=== PATIENT | female | born 1980 | race Two or more races ===

== ENCOUNTER 2024-08-27 03:08 | Inpatient (IN) | payer MEDICAID, SELFPAY ==
[2024-08-27] VITALS (8 sets, daily range): BP systolic 113–150; BP diastolic 66–99; PULSE 57–70; RESP 14–20; TEMP 36.3–37; O2SAT 95–99; BMI 40.3
--- NOTE | 2024-08-27 03:23 | XR_ITS ---
Examination: Abdomen sonogram, Limited Date and time of exam: August 27, 2024, 0434 hours INDICATIONS: Right upper abdominal pain beginning 3 hours ago Technique: Real-time cart[place]a scale transabdominal sonographic images of the upper abdomen obtained. Findings: Normal gallbladder. Normal common bile duct 0.35 cm Pancreas obscured by bowel gas Liver 13.5 cm no liver lesions Normal hepatopedal portal venous flow Patent IVC Impression : Normal gallbladder Normal common bile duct
--- NOTE | 2024-08-27 03:23 | XR_ITS ---
Examination: CT abdomen and pelvis without contrast. Coronal 3-D reconstructions. Sagittal 2-D reconstructions. Date and time of exam:[place] August 27, 2024, 0428 hours INDICATIONS: Onset abdominal pain today, history kidney stones COMPARISON: October 17, 2018 CTDI: vol (mGy): 21. DLP: (mGycm): 1196. Technique: Axial images of the abdomen have been obtained, 3 mm slice thickness Intravenous contrast material has not been administered. Low dose protocols were performed. One or more of the following dose reduction techniques were used; automated exposure control, adjustment of the mA and/or KV according to patient size, use of iterative reconstruction technique. Findings: Large retrocardiac gastric hernia No focal liver or splenic lesions Contracted gallbladder No pancreatic mass No renal or ureteral calculi, no hydronephrosis Fluid distended small bowel loops No pericecal inflammatory change No diverticulitis Retroverted uterus Mild free fluid in the pelvis Urinary bladder intact Moderate osteopenia IMPRESSION: Suspicious for early small bowel obstruction No renal or ureteral calculi, no hydronephrosis
--- NOTE | 2024-08-27 03:24 | PD.EDADULT ---
ED General RME/HPI General Chief complaint: Abdominal Pain Stated complaint: RUQ PAIN Time Seen by Provider: 08/27/24 03:27 Arrival date/time: 08/27/24 03:08 RME / HPI RME / HPI narrative: See MDM Related Data Home Medications ?Medication ?Instructions ?Recorded ?Confirmed No Known Home Medications 08/27/24 08/27/24 Allergies Allergy/AdvReac Type Severity Reaction Status Date / Time No Known Allergies Allergy Verified 12/25/22 20:26 Review of Systems Review of Systems Systems Reviewed: All systems reviewed, normal except as documented ED Exam Narrative Physical exam: GENERAL: NAD, AAOx3 HEENT: Moist mucosa. Eyes open, symmetrical, & clear CARDIO: Heart RRR, no obvious murmurs PULM: No noted coughing/dyspnea CTA B/L, no R/W/R GI: Abdomen soft, mild distention, tenderness to palpation in epigastric region. Appreciated bowel sounds SKIN/MSK/EXT: No wounds/rashes/edema/amputations, no pain on palpation. Pedal pulses present B/L NEURO: AAOx3, no focal neuro deficits, able to move all 4 extremities Course Course Course Narrative: see [facility] Quality Measures none Orders Category Date Time Status COVID-19 Screening Questionnaire NOW Care 08/27/24 06:56 Active Decision to Admit X1 Care 08/27/24 06:56 Completed Insert IV NOW Care 08/27/24 03:23 Active Insert NG / OG tube NOW Care 08/27/24 05:20 Active Miscellaneous Nursing Order NOW Care 08/27/24 05:46 Active Consult to General Surgery Stat Cons 08/27/24 05:[address] abdomen pelvis wo con Stat Exams 08/27/24 03:23 Completed CXR [XR chest 1V post procedure] Stat Exams 08/27/24 05:53 Completed US liver Stat Exams 08/27/24 03:23 Completed Amylase Stat Lab 08/27/24 03:35 Completed CBC Stat Lab 08/27/24 03:35 Completed CMP [Comprehensive Metabolic Panel] Stat Lab 08/27/24 03:35 Completed HCG Qualitative,Urine Stat Lab 08/27/24 21:58 Ordered HCG,Qualitative Serum Stat Lab 08/27/24 03:35 Completed Lactic Acid [Lactate (Lactic Acid)] Stat Lab 08/27/24 03:35 Completed Lipase Stat Lab 08/27/24 03:35 Completed Mag [Magnesium] Stat Lab 08/27/24 03:35 Completed UA, C/S IF [Urinalysis, C/S if Indicated] Stat Lab 08/27/24 21:58 Ordered Morphine Inj Med 08/27/24 03:24 Discontinued 2 mg IVP X1 ONE Morphine Inj Med 08/27/24 07:01 Discontinued 4 mg IVP X1 ONE Ondansetron Inj [Zofran Inj] Med 08/27/24 03:32 Active 4 mg IVP Q4HR PRN Ringers Lactated 1000 ml [Lactated Ringers] 1,000 ml Med 08/27/24 03:32 Discontinued IV 999 mls/hr Vital Signs Vital signs: Vital Signs Temperature 98.2 F 08/27/24 03:13 Pulse Rate 60 08/27/24 03:13 Respiratory Rate 17 08/27/24 03:13 Blood Pressure 138/86 H 08/27/24 03:13 Pulse Oximetry (%) 98 08/27/24 03:13 Oxygen Delivery Method Room Air 08/27/24 03:13 Discharge Plan Plan Patient Disposition: Admit Acute Care w/in Hospital Problem List Clinical Impression: Small bowel obstruction, Abdominal pain, Calculus of kidney MDM Narrative MDM hospital course: 44-year-old female past medical history of gastric sleeve surgery, C-sections who presented to the ED due to epigastric pain. Patient states the pain is 10 out of 10 nonradiating onset around midnight today 08/27/2024. She describes the pain as pressure-like sensation in the abdomen stated she needed to crawl applicable to make it tolerable. Before about getting out of the car to come to the ED she had to wait for 10 to 15-minute for the pain to go away. She states she previously had gallstones in the past however they told her she was likely to pass. She denies fever, chills, nausea, vomiting, diarrhea. Last bowel movement was 08/26/2024 in the morning. 0325: Morphine 2 mg IV x 1 ordered, ultrasound ordered, CT scan abdomen pelvis ordered, IVFs, labs ordered. 0522: CT scan shows small bowel obstruction, NG tube order placed, consulted General surgery, spoke to Dr. Estevez recommends NGT and gastrograffin study 0537: Spoke to hospitalist will sign out to day team for admission. Clinical Information Provided by patient Medical Records Reviewed None Medication Administration(s) Medication Administration History Acetaminophen (Acetaminophen 325 Mg Tablet) 650 mg PO Q6H PRN PRN Reason: Fever >101.5 Stop: 09/26/24 07:37 Acetaminophen (Acetaminophen 325 Mg Tablet) 650 mg PO Q6H PRN PRN Reason: PAIN SCALE 1-3 (mild Stop: 09/26/24 07:37 Last Admin: 08/27/24 16:15 Dose: 650 mg Documented By: ps Hydrocodone Bitart/Acetaminophen (Hydrocodone/Apap 10/325 Tab) 1 tab PO Q6H PRN PRN Reason: PAIN SCALE 4-6 (Moderate Stop: 09/01/24 07:37 Heparin Sodium (Porcine) (Heparin Sod Inj 5000 Unit/Ml Vial) 5,000 unit SC Q12HR [facility] Stop: 09/10/24 08:59 Last Admin: 08/28/24 08:08 Dose: 5,000 unit Documented By: Co-signed By: LUCAS Admin: 08/27/24 20:33 Dose: 5,000 unit Documented By: ANN Co-signed By: PATY Admin: 08/27/24 08:44 Dose: 5,000 unit Documented By: HENRRY Co-signed By: SCOTT Morphine Sulfate (Morphine Sulf Inj 10 Mg/Ml Vial) 1 mg IVP Q6H PRN PRN Reason: PAIN SCALE 7-10 (Severe Stop: 09/01/24 07:37 Ondansetron HCl (Ondansetron Inj 2 Mg/Ml Inj 2 Ml) 4 mg IVP Q4HR PRN; Protocol PRN Reason: NAUSEA OR VOMITING Stop: 09/26/24 03:31 Last Admin: 08/27/24 08:42 Dose: 4 mg Documented By: Admin: 08/27/24 03:50 Dose: 4 mg Documented By: SM Discontinued Medications Lactated Ringer's (Lactated Ringers) 1,000 mls @ 999 mls/hr IV .Q1H1M ONE Stop: 08/27/24 04:32 Last Infusion: 08/27/24 04:47 Dose: Infused Documented By: Admin: 08/27/24 03:46 Dose: 999 mls/hr Documented By: BLAINE Sodium Chloride (Ns) 1,000 mls @ 80 mls/hr IV .[id number] ELIEZER Stop: 09/26/24 07:44 Last Admin: 08/28/24 13:04 Dose: 80 mls/hr Documented By: Infusion: 08/28/24 12:10 Dose: Infused Documented By: Admin: 08/27/24 23:40 Dose: 80 mls/hr Documented By: Infusion: 08/27/24 20:56 Dose: Infused Documented By: Admin: 08/27/24 08:26 Dose: 80 mls/hr Documented By: GM Morphine Sulfate (Morphine Sulf Inj 10 Mg/Ml Vial) 2 mg IVP X1 ONE Stop: 08/27/24 03:25 Last Admin: 08/27/24 03:40 Dose: 2 mg Documented By: Morphine Sulfate (Morphine Sulf Inj 10 Mg/Ml Vial) 4 mg IVP X1 ONE Stop: 08/27/24 07:02 Last Admin: 08/27/24 07:22 Dose: 4 mg Documented By: GM Potassium Phos/Sodium Phos (Naph,[facility] Mbdb 1 Packet (1.5 Gm)) 1 packet PO X1 ONE Stop: 08/28/24 10:42 Last Admin: 08/28/24 11:00 Dose: 1 packet Documented By: Dispositon Disposition: Admit
[2024-08-27] MEDS: MORPHINE SULF INJ 10 MG/ML VIAL 2 MG IVP (03:40)
[2024-08-27 03:41] LABS: Basophils # (Auto) 0.1 Thou/mm3 (0.0-0.2); Basophils % (Auto) 1 % (0-2.5); Eosinophils # (Auto) 0.2 Thou/mm3 (0.0-0.5); Eosinophils % (Auto) 2 % (0-10); Hematocrit 42.3 % (36.0-46.0); Hemoglobin 13.9 g/dL (12.0-16.0); Immature Granulocytes Auto 0.02 Thou/mm3 (0.00-0.00); Lymphocytes # (Auto) 2.3 Thou/mm3 (1.0-4.8); Lymphocytes % (Auto) 23 % (10-50); Mean Corpuscular HGB Conc 32.9 g/dl (31.0-37.0); Mean Corpuscular Hemoglobin 27.1 pg (25.0-35.0); Mean Corpuscular Volume 83 fL (80-100); Monocytes # (Auto) 0.8 Thou/mm3 (0.0-0.8); Monocytes % (Auto) 8 % (0-12); Neutrophils # (Auto) 6.6 Thou/mm3 (1.8-7.7); Neutrophils % (Auto) 67 % (37-80); Nucleated Red Blood Cell # 0.00 Thou/mm3 (0.00-0.00); Nucleated Red Blood Cell % 0 /100 WBC (0); Platelet Count 216 Thou/mm3 (140-440); RDW Standard Deviation 41.6 fL (36.4-46.3); Red Blood Count 5.13 Miln/mm3 (4.00-5.20); White Blood Count 9.9 Thou/mm3 (3.6-11.0)
[2024-08-27 03:45] LABS: Lactate (Lactic Acid) 0.5 mMol/L (0.4-2.0)
[2024-08-27] MEDS: RINGERS LACTATED 1000 ML 1,000 ML 999 ML IV (03:46)
[2024-08-27] MEDS: ONDANSETRON INJ 2 MG/ML INJ 2 ML 4 MG IVP ×2 (03:50→08:42)
[2024-08-27 04:01] LABS: Alanine Aminotransferase 27 U/L (10-49); Albumin, Serum 4.5 gm/dL (3.5-5.0); Albumin/Globulin Ratio 1.4 (1.2-2.2); Alkaline Phosphatase 106 U/L (46-116); Amylase 124 U/L (30-118); Anion Gap 7 (7-16); Aspartate Amino Transferase 27 U/L (0-34); BUN/Creatinine Ratio 26 Ratio (12-20); Bilirubin,Total 0.3 mg/dL (0.3-1.2); Blood Urea Nitrogen 18 mg/dL (9-23); Calcium 9.4 mg/dL (8.3-10.6); Calcium (Corrected) 9.4 mg/dL (8.5-10.1); Carbon Dioxide 29.2 mMol/L (20.0-31.0); Chloride 107 mMol/L (98-107); Creatinine (Component) 0.7 mg/dL (0.6-1.3); Estimated Creatinine Clearance 119.6 mL/min (>60); Globulin 3.2 gm/dL (2.3-3.5); Glucose 107 mg/dL (74-106); HCG,Qualitative Serum Negative; Lipase 52 U/L (12-53); Magnesium 2.2 mg/dL (1.6-2.6); Osmolality,Calculated 286 (275-295); Potassium 4.2 mMol/L (3.4-5.1); Sodium 143 mMol/L (136-145); Total Protein 7.7 gm/dL (5.7-8.2); eGFR > 60 See Note
[2024-08-27 05:04] LABS: Collection Type, Urine Clean Catch
[2024-08-27 05:16] LABS: Bilirubin,Urine Negative (Negative); Blood,Urine Negative (Negative); Clarity,Urine Clear (Clear/Hazy); Color,Urine Yellow (Lt Yel-Yel); Glucose, Urine Negative (Negative); Ketones,Urine Negative (Negative); Leukocyte Esterase,Urine Positive (Negative); Nitrite,Urine Negative (Negative); PH,Urine 5.5 (5.0-7.0); Protein,Urine Negative (Neg - Trace); Specific Gravity,Urine 1.035 (1.001-1.035); Urobilinogen,Urine Negative mg/dL (0.0-1.0)
[2024-08-27 05:17] LABS: Culture Indicated,Urine Contaminated; RBC,Urine 4 /hpf (0-3); Squamous Epithelial Cell,Urine 11 /hpf (0-5); WBC,Urine 42 /hpf (0-5)
--- NOTE | 2024-08-27 05:22 | PRELIM_ITS ---
CT scan of the abdomen and pelvis without intravenous contrast (axial sections with sagittal and coronal reformats). August 27, 2024 at 0428 hours Clinical History: Abdominal pain. Comparison: No prior study is available for comparison. Findings: The lung bases are clear. The liver, gallbladder, pancreas, spleen, kidneys and adrenals are unremarkable on this noncontrast study. Dilated small bowel loops measuring up to 3.2 cm associated with air-fluid levels within and transition point in the mid abdomen and peripheral mesenteric edema. No evidence of appendicitis. There is no mesenteric or retroperitoneal adenopathy. The urinary bladder is unremarkable. There is no free fluid or free air. The osseous structures are unremarkable. Status post gastric surgery, probably gastric sleeve. Large hiatus hernia with most of the stomach above the diaphragm. Fecal loading. Diverticulosis of the colon. The uterus and ovaries are within normal limits. Impression: Small bowel obstruction.Large hiatus hernia with most of the stomach above the diaphragm. Discussion Details: The results were verbally communicated to Gayle Ospina RN at 08:18 AM ET 08/27/2024. A callback number is provided to facilitate direct [id number] communication. Report Electronically Signed By: Jose Luis Watts 08/27/2024 5:21:33 AM [EST]
--- NOTE | 2024-08-27 05:42 | PD.RESEVENT ---
Documentation for date of: 08/27/24 Event Note Event Note: 08/27/2024: Called around 5:40 AM regarding 44-year-old female with no significant past medical history presenting with abdominal/epigastric pain which started around 11 PM and would not subside. Patient states that the pain is localized in the epigastric area does not radiate anywhere; moreover, last bowel movement was earlier in the day on 08/26 and she had multiple bowel movements on 08/25. Patient has been passing gas; however, in the ED CT Abd/P showed Small bowel obstruction.Large hiatus hernia with most of the stomach above the diaphragm. ED provider contacted general surgeon, Dr. Estevez who suggested initiating NG tube and admitting. On assessment, patient denies having any active abdominal pain at this time; moreover, has been passing flatus and NG tube is not placed as of yet. Will sign off patient to morning team. Andrew Garcia, DO PGY-2 Internal Medicine - GME
--- NOTE | 2024-08-27 05:53 | XR_ITS ---
Examination: AP chest single view TECHNIQUE: AP portable upright chest single view Date and time: August 27, 2024 0613 hours Comparison February 08, 2014 INDICATIONS: Post orogastric tube placement FINDINGS: Retrocardiac gastric hernia Orogastric tube tip projects at the GE junction Moderate vascular congestion IMPRESSION: Advance the orogastric tube 7 cm
--- NOTE | 2024-08-27 05:56 | PRELIM_ITS ---
Ultrasound liver. August 27, 2024 0434 hours Clinical history: abdominal pain Comparison:Compared with the prior CT abdomen and pelvis from earlier the same day. Findings: The liver measures 13.5 cm and demonstrates normal echotexture. There is no intrahepatic biliary ductal dilatation. No cholelithiasis, gallbladder wall thickening or pericholecystic fluid.The main portal vein demonstrates hepatopetal flow. The visualized hepatic veins appear patent. The common hepatic duct is normal in caliber. IVC is patent. Impression: Unremarkable sonography of the liver. Report Electronically Signed By: Genevieve Nelson 08/27/2024 5:56:22 AM [EST]
--- NOTE | 2024-08-27 06:23 | PC.NURSE ---
PER RESIDENT HAQ NG TUBE IS IN PLACE. IT IS GOOD TO USE. ORDER FOR LOW INTERMITTENT SUCTION PLACED.
[2024-08-27] MEDS: MORPHINE SULF INJ 10 MG/ML VIAL 4 MG IVP (07:22)
--- NOTE | 2024-08-27 07:44 | XR_ITS ---
Examination: Small bowel series with KUB AP supine abdomen 4 views Date and time: August 27, 2024, 1351 hours INDICATIONS: Right upper abdominal pain 1 week, CT abdomen and pelvis study this morning multiple fluid distended small bowel loops TECHNIQUE AND FINDINGS: Immediate abdomen film obtained post administration 120 cc Gastrografin, contrast in the stomach and duodenum 15 minute 1 hour and 3 hour films obtained showing contrast in distended small bowel loops, however most of the contrast is in the colon on the 3 hour film IMPRESSION: Negative for small bowel obstruction, no further films are needed
--- NOTE | 2024-08-27 08:00 | PC.NURSE ---
SPOKE TO JEROME NAQVI; THIS RN SEEKING CLARIFICATION IF OK TO ADVANCE NG TUBE S/P CT ABD RESULT OF PART OF STOMACH ABOVE THE DIAPHRAGM AND IF OK TO CONTINUE WITH THE GASTROGRAFIN STUDIES BY X-RAY. PER DR. CANO, OK TO ADVANCE NG TUBE ONLY BY 3CM AND O FOR X-RAY TO CONTINUE WITH GASTROGRAFIN STUDIES AFTER ADVANCING NG TUBE.
[2024-08-27] MEDS: SODIUM CHLORIDE 0.9% 1000 ML 1,000 ML 80 ML IV ×2 (08:26→23:40)
[2024-08-27] MEDS: HEPARIN SOD INJ 5000 UNIT/ML VIAL SC ×2 (08:44→20:33)
--- NOTE | 2024-08-27 08:47 | XR_ITS ---
Impression: AP chest single view Technique: AP portable chest single view Date and time: August 27, 2024 0911 hrs. Indications: Adjustment orogastric tube Findings: The lower end of the orogastric tube is very poorly visualized on this study, recommend abdomen film follow-up Enlarged cardiac contour No lobar pneumonia Impression: Recommend abdomen film follow-up to better assess position of the orogastric tube
--- NOTE | 2024-08-27 10:16 | XR_ITS ---
Examination: Abdomen AP single view Technique: AP portable supine abdomen, single view Exam date and time: 10:25 PM Indications: Reposition orogastric tube Findings: Orogastric tube tip at the GE junction Impression: Advance the orogastric tube 10 cm
--- NOTE | 2024-08-27 11:15 | PC.NURSE ---
SPOKE TO DR. CANO AND UPDATED THAT PT'S ABD XRAY RECOMMENED NG TUBE TO BE ADVANCED ANOTHER [address] EROS Hightower. PER DR. CANO, ONLY ADVANCE THE NG TUBE 5 CM; REORDER ABD XRAY AFTER ADVANCING NG TUBE AND LET ME KNOW THE RESULT BEFORE STARTING THE GASTROGRAFIN STUDIES.
--- NOTE | 2024-08-27 11:24 | XR_ITS ---
Examination: Abdomen AP single view Technique: AP portable supine abdomen, single view Exam date and time: August 27, 2024, 11:29 AM Indications: Reposition orogastric tube. Findings: The orogastric tube is in a large retrocardiac gastric hernia, it is not present below the hemidiaphragms It is still likely safe to administer Gastrografin to patient as the contrast material will pass from the retrocardiac gastric hernia and eventually empty into the small bowel Dilated small bowel loops noted Impression: The orogastric tube tip in the large retrocardiac gastric hernia
[2024-08-27] MEDS: ACETAMINOPHEN 325 MG TABLET 650 MG PO (16:15)
--- NOTE | 2024-08-27 16:54 | ESHP_ITS ---
<Statement entered by Red Alexander MD - 08/27/24 18:18> In summary: Otherwise healthy 44-year-old female with past medical history of gastric sleeve in 2022, presenting abdominal distention, unable to pass stool for 4 days. Admitted for SBO seen on KUB. General surgery was consulted and recommended NG tube suctioning, bowel rest, and GASTROGRAFIN study. Labs within normal limit. Labs are relatively normal except for ambulation 124, however nontender on exam, no history of alcohol use, low suspicion for acute pancreatitis. Case was discussed with attending physician. Red Alexander, PGY II This document was transcribed using voice recognition technology. Minor inaccuracies may be present. Documentation for date of: 08/27/24 HPI History of Present Illness History of present illness: Kira Varghese is a 44-year-old female with no significant past medical history who presented to the ED c/o worsening abdominal pain since midnight. Patient states that the pain had localized to the epigastrium, felt like pressure, and pain medicine administered in the ED gave her full relief. Moreover, last bowel movement was in the morning of the day before while she typically has multiple bowel movements regularly. Patient able to pass flatus. Denies fever, chills, nausea, vomiting, or diarrhea. Allergies: NKDA, no other allergies Meds: multiVit PMHx: none PSHx: Gastric sleeve bariatric surgery for weight loss Reason for Admission: Patient being admitted for work-up fecal impaction. Will decide on the most appropriate course of action based on gastrograffin and abdominal series study results. Exam Vital Signs Temp Pulse Resp BP Pulse Ox O2 Del Method 97.5 F 57 L 17 113/76 98 Room Air 08/27/24 16:00 08/27/24 16:00 08/27/24 16:00 08/27/24 16:00 08/27/24 16:00 08/27/24 16:00 Narrative Exam GENERAL: NAD, AAOx3 HEENT: Moist mucosa. Eyes open, symmetrical, & clear CARDIO: Heart RRR, no obvious murmurs PULM: No noted coughing/dyspnea. CTA B/L, no R/W/R GI: Abdomen soft, mild distention, tenderness to palpation in epigastric region. Appreciated bowel sounds. Abdomen dull to percussion in the LLQ and RUQ. SKIN/MSK/EXT: No wounds/rashes/edema/amputations, no pain on palpation. Pedal pulses present B/L NEURO: AAOx3, no focal neuro deficits, able to move all 4 extremities Results: Labs 08/29/24 04:45 08/29/24 04:45 Labs: Short CBC 08/27/24 Range/Units 03:35 WBC 9.9 (3.6-11.0) Thou/mm3 Hgb 13.9 (12.0-16.0) g/dL Hct 42.3 (36.0-46.0) % Plt Count 216 (140-440) Thou/mm3 BMP 08/27/24 03:35 Sodium 143 Potassium 4.2 Chloride 107 Carbon Dioxide 29.2 BUN 18 Creatinine 0.7 Glucose 107 H Calcium 9.4 Liver Function 08/27/24 Range/Units 03:35 Total Bilirubin 0.3 (0.3-1.2) mg/dL AST 27 (0-34) U/L ALT 27 (10-49) U/L Alkaline Phosphatase 106 (46-116) U/L Albumin 4.5 (3.5-5.0) gm/dL Urine 08/27/24 Range/Units 04:53 Urine Color Yellow (Lt Yel-Yel) Urine Clarity Clear (Clear/Hazy) Urine pH 5.5 (5.0-7.0) Ur Specific [place] 1.035 (1.001-1.035) Urine Protein Negative (Neg - Trace) Urine Glucose (UA) Negative (Negative) Quality Measures Quality Measures none Medications Home Medications and Allergies Allergies Allergy/AdvReac Type Severity Reaction Status Date / Time No Known Allergies Allergy Verified 12/25/22 20:26 Visit Medications Acetaminophen (Acetaminophen 325 Mg Tablet) 650 mg PO Q6H PRN PRN Reason: Fever >101.5 Stop: 09/26/24 07:37 Acetaminophen (Acetaminophen 325 Mg Tablet) 650 mg PO Q6H PRN PRN Reason: PAIN SCALE 1-3 (mild Stop: 09/26/24 07:37 Last Admin: 08/27/24 16:15 Dose: 650 mg Hydrocodone Bitart/Acetaminophen (Hydrocodone/Apap 10/325 Tab) 1 tab PO Q6H PRN PRN Reason: PAIN SCALE 4-6 (Moderate Stop: 09/01/24 07:37 Heparin Sodium (Porcine) (Heparin Sod Inj 5000 Unit/Ml Vial) 5,000 unit SC Q12HR [facility]IE[facility] Stop: 09/10/24 08:59 Last Admin: 08/27/24 08:44 Dose: 5,000 unit Sodium Chloride (Ns) 1,000 mls @ 80 mls/hr IV .[id number] ELIEZRE Stop: 09/26/24 07:44 Last Admin: 08/27/24 08:26 Dose: 80 mls/hr Morphine Sulfate (Morphine Sulf Inj 10 Mg/Ml Vial) 1 mg IVP Q6H PRN PRN Reason: PAIN SCALE 7-10 (Severe Stop: 09/01/24 07:37 Ondansetron HCl (Ondansetron Inj 2 Mg/Ml Inj 2 Ml) 4 mg IVP Q4HR PRN; Protocol PRN Reason: NAUSEA OR VOMITING Stop: 09/26/24 03:31 Last Admin: 08/27/24 08:42 Dose: 4 mg Discontinued Medications Lactated Ringer's (Lactated Ringers) 1,000 mls @ 999 mls/hr IV .Q1H1M ONE Stop: 08/27/24 04:32 Last Infusion: 08/27/24 04:47 Dose: Infused Morphine Sulfate (Morphine Sulf Inj 10 Mg/Ml Vial) 2 mg IVP X1 ONE Stop: 08/27/24 03:25 Last Admin: 08/27/24 03:40 Dose: 2 mg Morphine Sulfate (Morphine Sulf Inj 10 Mg/Ml Vial) 4 mg IVP X1 ONE Stop: 08/27/24 07:02 Last Admin: 08/27/24 07:22 Dose: 4 mg Assessment & Plan Plan Kira Varghese is a 44-year-old female with no significant past medical history who presented to the ED c/o worsening abdominal pain since 11PM 08/26. #Small Bowel Obstruction, ruled out Ddx: acute gastritis vs hepatits vs cholecystitis vs pancreatitis vs atypical ACS vs acute mesenteric ischemia -Patient has had only one BM in AM and nothing since while she typically has 2-3 times daily. Admits to passing flatus. -CTAP: Large retrocardiac gastric hernia. Fluid distended small bowel loops. Suspicious for early small bowel obstruction. No renal or ureteral calculi, no hydronephrosis. -US of abdomen: Normal gallbladder. Normal CBD. -Small Bowel X-ray: Negative for SBO. Immediate abdomen film obtained post administration 120 cc Gastrografin, contrast in the stomach and duodenum 15 minute, 1 hour, and 3 hour films obtained showing contrast in distended small bowel loops, however most of the contrast is in the colon on the 3 hour film Plan: -IV NS 80ml/h -[place] 10-325 PO tab Q6h PRN pain -IVP morphine 1mg PRN pain -CBC, CMP, lipid panel, Mg, PO4 -Lipid panel -LFTs Hospital Documents: PPx DVT: SC heparin 5000 Q12h Diet: NPO code status: full Case was discussed with attending physician, Dr. Govea, and senior resident Dr Alexander. Karlo De Anda, DO PGY I Attending Provider Attestation/Addendum I attest that I was physically present for the evaluation, physical examination, lab and imaging review of the patient with the residents. I discussed the case with the residents and agree with the findings and plans of care as documented above. After examination of the patient and review of the clinical data I feel that this patient needs admission to the hospital for further treatment/evaluation. Audie Govea MD
--- NOTE | 2024-08-27 20:30 | PC.NURSE ---
called Xray department spoke to Nelson to notify regarding SBO x ray series, report states negative for SBO, no additional films needed. Notified Dr. Carlos Doe regarding this, Patient also has no more NG tube, per patient when they instilled gastrografin contrast for SBO series, patient was nauseated and dry heaving and NG tube came out. Per Dr. Carlos Doe, still keep patient NPO, okay to give tylenol with sips of water, No new order to reinsert NG tube. Keep patient on IV fluids. Patient on assessment reports no abdominal pain, abdomen soft, passing flatus. No other orders received.
[2024-08-28] VITALS: BP 137/76; PULSE 67; RESP 18; TEMP 36.1; O2SAT 97
[2024-08-28 04:00] VITALS: BP 127/63; PULSE 55; RESP 18; TEMP 36.1; O2SAT 99
[2024-08-28 05:29] LABS: Basophils # (Auto) 0.1 Thou/mm3 (0.0-0.2); Basophils % (Auto) 1 % (0-2.5); Eosinophils # (Auto) 0.2 Thou/mm3 (0.0-0.5); Eosinophils % (Auto) 2 % (0-10); Hematocrit 37.6 % (36.0-46.0); Hemoglobin 12.1 g/dL (12.0-16.0); Immature Granulocytes Auto 0.01 Thou/mm3 (0.00-0.00); Lymphocytes # (Auto) 2.1 Thou/mm3 (1.0-4.8); Lymphocytes % (Auto) 30 % (10-50); Mean Corpuscular HGB Conc 32.2 g/dl (31.0-37.0); Mean Corpuscular Hemoglobin 26.5 pg (25.0-35.0); Mean Corpuscular Volume 83 fL (80-100); Monocytes # (Auto) 0.6 Thou/mm3 (0.0-0.8); Monocytes % (Auto) 8 % (0-12); Neutrophils # (Auto) 4.0 Thou/mm3 (1.8-7.7); Neutrophils % (Auto) 58 % (37-80); Nucleated Red Blood Cell # 0.00 Thou/mm3 (0.00-0.00); Nucleated Red Blood Cell % 0 /100 WBC (0); Platelet Count 182 Thou/mm3 (140-440); RDW Standard Deviation 42.4 fL (36.4-46.3); Red Blood Count 4.56 Miln/mm3 (4.00-5.20); White Blood Count 6.8 Thou/mm3 (3.6-11.0)
[2024-08-28 05:53] LABS: INR 1.0 (0.9-1.3); Partial Thromboplastin Time 28.8 Seconds (22.0-36.0); Prothrombin Time 11.1 Seconds (9.0-12.2)
[2024-08-28 06:00] LABS: Alanine Aminotransferase 19 U/L (10-49); Albumin, Serum 3.8 gm/dL (3.5-5.0); Albumin/Globulin Ratio 1.4 (1.2-2.2); Alkaline Phosphatase 64 U/L (46-116); Anion Gap 10 (7-16); Aspartate Amino Transferase 18 U/L (0-34); BUN/Creatinine Ratio 15 Ratio (12-20); Bilirubin,Total 0.8 mg/dL (0.3-1.2); Blood Urea Nitrogen 9 mg/dL (9-23); Calcium 8.9 mg/dL (8.3-10.6); Calcium (Corrected) 9.1 mg/dL (8.5-10.1); Carbon Dioxide 27.1 mMol/L (20.0-31.0); Cardiac Risk Estimate 2.5 RATIO (3.7-5.6); Chloride 107 mMol/L (98-107); Cholesterol 143 mg/dL (132-200); Creatinine (Component) 0.6 mg/dL (0.6-1.3); Estimated Creatinine Clearance 139.6 mL/min (>60); Globulin 2.7 gm/dL (2.3-3.5); Glucose 82 mg/dL (74-106); HDL Cholesterol 58 mg/dL (40-60); LDL Cholesterol,Calculated 62 mg/dL (0-130); Magnesium 1.8 mg/dL (1.6-2.6); Osmolality,Calculated 284 (275-295); Phosphorous 3.5 mg/dL (2.4-5.1); Potassium 3.9 mMol/L (3.4-5.1); Sodium 144 mMol/L (136-145); Total Protein 6.5 gm/dL (5.7-8.2); Triglycerides 113 mg/dL (30-150); eGFR > 60 See Note
[2024-08-28 08:00] VITALS: BP 125/73; PULSE 59; RESP 17; TEMP 36.3; O2SAT 98
[2024-08-28] MEDS: HEPARIN SOD INJ 5000 UNIT/ML VIAL SC ×2 (08:08→20:49)
[2024-08-28] MEDS: NAPH,KPH MBDB 1 PACKET (1.5 GM) PO (11:00)
[2024-08-28 12:00] VITALS: BP 139/70; PULSE 58; RESP 17; TEMP 36.6; O2SAT 97
[2024-08-28] MEDS: SODIUM CHLORIDE 0.9% 1000 ML 1,000 ML 80 ML IV (13:04)
[2024-08-28 16:00] VITALS: BP 129/79; PULSE 54; RESP 18; TEMP 36.3; O2SAT 98
[2024-08-28 20:00] VITALS: BP 132/78; PULSE 56; RESP 18; TEMP 36.4; O2SAT 98
--- NOTE | 2024-08-28 20:57 | ESPR_ITS ---
Documentation for date of: 08/28/24 Subjective Subjective Interval history: Patient examined at bedside. No acute overnight events. Patient reports her abdominal pain and nausea has improved. She is requesting to have some food. She says she has been having been able to passing gas, however no bowel movements. No other complaints at this time. Exam Vital Signs Temp Pulse Resp BP Pulse Ox O2 Del Method 97.5 F 56 L 18 132/78 H 98 Room Air 08/28/24 20:00 08/28/24 20:00 08/28/24 20:00 08/28/24 20:00 08/28/24 20:00 08/28/24 20:00 Narrative Exam GENERAL: NAD, AAOx3 HEENT: Moist mucosa. Eyes open, symmetrical, & clear CARDIO: Heart RRR, no obvious murmurs PULM: No noted coughing/dyspnea. CTA B/L, no R/W/R GI: Abdomen soft, mild distention, tenderness to palpation in epigastric region. Appreciated bowel sounds. Abdomen dull to percussion in the LLQ and RUQ. SKIN/MSK/EXT: No wounds/rashes/edema/amputations, no pain on palpation. Pedal pulses present B/L NEURO: AAOx3, no focal neuro deficits, able to move all 4 extremities Objective Labs 08/29/24 04:45 08/29/24 04:45 Labs: Laboratory Results - last 24 hr 08/28/24 04:10 WBC 6.8 RBC 4.56 Hgb 12.1 Hct 37.6 MCV 83 MCH 26.5 MCHC 32.2 RDW Std Deviation 42.4 Plt Count 182 D Neut % (Auto) 58 Lymph % (Auto) 30 [place] % (Auto) 8 Eos % (Auto) 2 Baso % (Auto) 1 Neut # (Auto) 4.0 Lymph # (Auto) 2.1 [place] # (Auto) 0.6 Eos # (Auto) 0.2 Baso # (Auto) 0.1 Immature Gran # (Auto) 0.01 H Absolute Nucleated RBC 0.00 Immature Gran % 0 Nucleated RBC % 0 PT 11.1 INR 1.0 APTT 28.8 Sodium 144 Potassium 3.9 Chloride 107 Carbon Dioxide 27.1 Anion Gap 10 BUN 9 Creatinine 0.6 Estim Creat Clear Calc 139.6 eGFR > 60 BUN/Creatinine Ratio 15 Glucose 82 Calculated Osmolality 284 Calcium 8.9 Corrected Calcium 9.1 Phosphorus 3.5 Magnesium 1.8 Total Bilirubin 0.8 D AST 18 ALT 19 Alkaline Phosphatase 64 D Total Protein 6.5 Albumin 3.8 D Globulin 2.7 Albumin/Globulin Ratio 1.4 Triglycerides 113 Cholesterol 143 LDL Cholesterol, Calc 62 HDL Cholesterol 58 Cholesterol/HDL Ratio 2.5 L Quality Measures Quality Measures none Assessment & Plan Assessment Current Active Medications: Generic Name Dose Route Start Last Admin Trade Name Freq PRN Reason Stop Dose Admin Acetaminophen 650 mg 08/27/24 07:38 Acetaminophen 325 Mg Tablet PO 09/26/24 07:37 Q6H PRN Fever >101.5 Acetaminophen 650 mg 08/27/24 07:38 08/27/24 16:15 Acetaminophen 325 Mg Tablet PO 09/26/24 07:37 650 mg Q6H PRN Administration PAIN SCALE 1-3 (mild Hydrocodone Bitart/Acetaminophen 1 tab 08/27/24 07:38 Hydrocodone/Apap 10/325 Tab PO 09/01/24 07:37 Q6H PRN PAIN SCALE 4-6 (Moderate Heparin Sodium (Porcine) 5,000 unit 08/27/24 09:00 08/28/24 20:49 Heparin Sod Inj 5000 Unit/Ml Vial SC 09/10/24 08:59 5,000 unit Q12HR ELIEZER Administration Morphine Sulfate 1 mg 08/27/24 07:38 Morphine Sulf Inj 10 Mg/Ml Vial IVP 09/01/24 07:37 Q6H PRN PAIN SCALE 7-10 (Severe Ondansetron HCl 4 mg 08/27/24 03:32 08/27/24 08:42 Ondansetron Inj 2 Mg/Ml Inj 2 Ml IVP 09/26/24 03:31 4 mg Q4HR PRN Administration NAUSEA OR VOMITING Protocol Plan Assessment: Kira Varghese is a 44-year-old female with no significant past medical history who presented to the ED c/o worsening abdominal pain since 11PM 08/26. #Small Bowel Obstruction, ruled out #Abdominal pain, improving #Hx of gastric sleeve Ddx: acute gastritis vs hepatits vs cholecystitis vs pancreatitis vs atypical ACS vs acute mesenteric ischemia -Patient has had only one BM in AM and nothing since while she typically has 2-3 times daily. Admits to passing flatus. -CTAP: Large retrocardiac gastric hernia. Fluid distended small bowel loops. Suspicious for early small bowel obstruction. No renal or ureteral calculi, no hydronephrosis. -US of abdomen: Normal gallbladder. Normal CBD. -Small Bowel X-ray: Negative for SBO. Immediate abdomen film obtained post administration 120 cc Gastrografin, contrast in the stomach and duodenum 15 minute, 1 hour, and 3 hour films obtained showing contrast in distended small bowel loops, however most of the contrast is in the colon on the 3 hour film SBO resolved, likely related to possible constipation or hx of surgery Currently passing gas, however has not had a bowel movement yet Plan: -Advancing diet as tolerated -Pain control -Laxatives as needed #Health Maintenance Disposition: MedSur DVT prophylaxis: Heparin GI prophylaxis: None indicated at this time Diet: Clear liquid, advance as tolerated CODE STATUS: Full Patient seen and care discussed with my attending physician, Dr. Scruggs, Andrey Kenney, PGY-2 Attending Provider Attestation/Addendum Patient was seen and examined with internal medicine residents. Patient reported passing gas. She denies abdominal pain. There is no increased abdominal distention. No nausea or vomiting reported. I discussed with and supervised the resident physician who took care of this patient. I agree with the assessment and plan as above.
[2024-08-29] VITALS: BP 127/78; PULSE 54; PULSE 62; RESP 18; TEMP 35.9; O2SAT 97
[2024-08-29 04:00] VITALS: BP 112/66; PULSE 59; RESP 18; TEMP 36.5; O2SAT 99
[2024-08-29 05:46] LABS: Basophils # (Auto) 0.0 Thou/mm3 (0.0-0.2); Basophils % (Auto) 0 % (0-2.5); Eosinophils # (Auto) 0.1 Thou/mm3 (0.0-0.5); Eosinophils % (Auto) 2 % (0-10); Hematocrit 38.1 % (36.0-46.0); Hemoglobin 12.5 g/dL (12.0-16.0); Immature Granulocytes Auto 0.02 Thou/mm3 (0.00-0.00); Lymphocytes # (Auto) 2.0 Thou/mm3 (1.0-4.8); Lymphocytes % (Auto) 30 % (10-50); Mean Corpuscular HGB Conc 32.8 g/dl (31.0-37.0); Mean Corpuscular Hemoglobin 26.8 pg (25.0-35.0); Mean Corpuscular Volume 82 fL (80-100); Monocytes # (Auto) 0.7 Thou/mm3 (0.0-0.8); Monocytes % (Auto) 11 % (0-12); Neutrophils # (Auto) 3.8 Thou/mm3 (1.8-7.7); Neutrophils % (Auto) 57 % (37-80); Nucleated Red Blood Cell # 0.00 Thou/mm3 (0.00-0.00); Nucleated Red Blood Cell % 0 /100 WBC (0); Platelet Count 180 Thou/mm3 (140-440); RDW Standard Deviation 40.6 fL (36.4-46.3); Red Blood Count 4.67 Miln/mm3 (4.00-5.20); White Blood Count 6.7 Thou/mm3 (3.6-11.0)
[2024-08-29 06:34] LABS: Alanine Aminotransferase 19 U/L (10-49); Albumin, Serum 3.9 gm/dL (3.5-5.0); Albumin/Globulin Ratio 1.3 (1.2-2.2); Alkaline Phosphatase 62 U/L (46-116); Anion Gap 12 (7-16); Aspartate Amino Transferase 18 U/L (0-34); BUN/Creatinine Ratio 12 Ratio (12-20); Bilirubin,Total 0.9 mg/dL (0.3-1.2); Blood Urea Nitrogen 7 mg/dL (9-23); Calcium 9.2 mg/dL (8.3-10.6); Calcium (Corrected) 9.3 mg/dL (8.5-10.1); Carbon Dioxide 27.3 mMol/L (20.0-31.0); Chloride 105 mMol/L (98-107); Creatinine (Component) 0.6 mg/dL (0.6-1.3); Estimated Creatinine Clearance 139.6 mL/min (>60); Globulin 2.9 gm/dL (2.3-3.5); Glucose 84 mg/dL (74-106); Osmolality,Calculated 283 (275-295); Potassium 3.7 mMol/L (3.4-5.1); Sodium 144 mMol/L (136-145); Total Protein 6.8 gm/dL (5.7-8.2); eGFR > 60 See Note
--- NOTE | 2024-08-29 07:57 | PD.RESPRO ---
Documentation for date of: 08/29/24 Subjective Subjective Interval history: Patient examined at bedside. No acute overnight events. Patient reports her abdominal pain and nausea has improved. She is requesting to have some food. She says she has been having been able to passing gas, however no bowel movements. No other complaints at this time. Exam Vital Signs Temp Pulse Resp BP Pulse Ox O2 Del Method 97.7 F 59 L 18 112/66 99 Room Air 08/29/24 04:00 08/29/24 04:00 08/29/24 04:00 08/29/24 04:00 08/29/24 04:00 08/29/24 04:00 Narrative Exam GENERAL: NAD, AAOx3 HEENT: Moist mucosa. Eyes open, symmetrical, & clear CARDIO: Heart RRR, no obvious murmurs PULM: No noted coughing/dyspnea. CTA B/L, no R/W/R GI: Abdomen soft, mild distention, tenderness to palpation in epigastric region. Appreciated bowel sounds. Abdomen dull to percussion in the LLQ and RUQ. SKIN/MSK/EXT: No wounds/rashes/edema/amputations, no pain on palpation. Pedal pulses present B/L NEURO: AAOx3, no focal neuro deficits, able to move all 4 extremities Objective Labs 08/29/24 04:45 08/29/24 04:45 Labs: Laboratory Results - last 24 hr 08/29/24 04:45 WBC 6.7 RBC 4.67 Hgb 12.5 Hct 38.1 MCV 82 MCH 26.8 MCHC 32.8 RDW Std Deviation 40.6 Plt Count 180 Neut % (Auto) 57 Lymph % (Auto) 30 [place] % (Auto) 11 Eos % (Auto) 2 Baso % (Auto) 0 Neut # (Auto) 3.8 Lymph # (Auto) 2.0 [place] # (Auto) 0.7 Eos # (Auto) 0.1 Baso # (Auto) 0.0 Immature Gran # (Auto) 0.02 H Absolute Nucleated RBC 0.00 Immature Gran % 0 Nucleated RBC % 0 Sodium 144 Potassium 3.7 Chloride 105 Carbon Dioxide 27.3 Anion Gap 12 BUN 7 L Creatinine 0.6 Estim Creat Clear Calc 139.6 eGFR > 60 BUN/Creatinine Ratio 12 Glucose 84 Calculated Osmolality 283 Calcium 9.2 Corrected Calcium 9.3 Total Bilirubin 0.9 AST 18 ALT 19 Alkaline Phosphatase 62 Total Protein 6.8 Albumin 3.9 Globulin 2.9 Albumin/Globulin Ratio 1.3 Quality Measures Quality Measures none Assessment & Plan Assessment Current Active Medications: Generic Name Dose Route Start Last Admin Trade Name Freq PRN Reason Stop Dose Admin Acetaminophen 650 mg 08/27/24 07:38 Acetaminophen 325 Mg Tablet PO 09/26/24 07:37 Q6H PRN Fever >101.5 Acetaminophen 650 mg 08/27/24 07:38 08/27/24 16:15 Acetaminophen 325 Mg Tablet PO 09/26/24 07:37 650 mg Q6H PRN Administration PAIN SCALE 1-3 (mild Hydrocodone Bitart/Acetaminophen 1 tab 08/27/24 07:38 Hydrocodone/Apap 10/325 Tab PO 09/01/24 07:37 Q6H PRN PAIN SCALE 4-6 (Moderate Heparin Sodium (Porcine) 5,000 unit 08/27/24 09:00 08/28/24 20:49 Heparin Sod Inj 5000 Unit/Ml Vial SC 09/10/24 08:59 5,000 unit Q12HR ELIEZER Administration Morphine Sulfate 1 mg 08/27/24 07:38 Morphine Sulf Inj 10 Mg/Ml Vial IVP 09/01/24 07:37 Q6H PRN PAIN SCALE 7-10 (Severe Ondansetron HCl 4 mg 08/27/24 03:32 08/27/24 08:42 Ondansetron Inj 2 Mg/Ml Inj 2 Ml IVP 09/26/24 03:31 4 mg Q4HR PRN Administration NAUSEA OR VOMITING Protocol Plan Assessment: Kira Varghese is a 44-year-old female with no significant past medical history who presented to the ED c/o worsening abdominal pain since 11PM 08/26. #Small Bowel Obstruction, ruled out #Abdominal pain, improving #Hx of gastric sleeve Ddx: acute gastritis vs hepatits vs cholecystitis vs pancreatitis vs atypical ACS vs acute mesenteric ischemia -Patient has had only one BM in AM and nothing since while she typically has 2-3 times daily. Admits to passing flatus. -CTAP: Large retrocardiac gastric hernia. Fluid distended small bowel loops. Suspicious for early small bowel obstruction. No renal or ureteral calculi, no hydronephrosis. -US of abdomen: Normal gallbladder. Normal CBD. -Small Bowel X-ray: Negative for SBO. Immediate abdomen film obtained post administration 120 cc Gastrografin, contrast in the stomach and duodenum 15 minute, 1 hour, and 3 hour films obtained showing contrast in distended small bowel loops, however most of the contrast is in the colon on the 3 hour film SBO resolved, likely related to possible constipation or hx of surgery Currently passing gas, however has not had a bowel movement yet Plan: -Advancing diet as tolerated -Pain control -Laxatives as needed #Health Maintenance Disposition: MedSurg DVT prophylaxis: Heparin GI prophylaxis: None indicated at this time Diet: Clear liquid, advance as tolerated CODE STATUS: Full Patient seen and care discussed with my attending physician, Dr. Scruggs, Andrey Kenney, PGY-2
[2024-08-29 08:00] VITALS: BP 127/76; PULSE 57; RESP 18; TEMP 36.1; O2SAT 96
[2024-08-29] MEDS: HEPARIN SOD INJ 5000 UNIT/ML VIAL SC (08:47)
--- NOTE | 2024-08-29 10:00 | CHAP ---
Patient was visited by the Spiritual care Volunteer who prayed for them. (Volunteer was in the hospital from 09:13-10:00)
[2024-08-29 12:00] VITALS: BP 132/88; PULSE 58; RESP 17; TEMP 36.4; O2SAT 99
--- NOTE | 2024-08-29 15:40 | PC.SS ---
Kira Varghese is 44 year old female admitted to [facility] for SBO. SS conducted bedside contact with the patient to complete initial assessment and to discuss discharge planning.? SW used all precautionary measures to complete initial. Role and reason for the contact was explained to Kira. Pt is alert and oriented times 4. Patient confirmed demographic information confirmed address on Facesheet. Pt lives with family. Patient identifies Chris Nicholas, rebekaher, as her surrogate decision maker. Pt states prior to hospitalization she is able to complete all ADL?s independently and does not require DME nor O2. Pt confirmed no history of mental health or substance abuse. Pt does not have Advance life directive on file and not receptive to paper work. Pts PCP is Dr Ephraim Lozoya, last seen last Friday. Pharmacy of choice is [facility]. Discharge options discussed and the pt will ?return home. Pt will provide own transportation upon DC. No further intervention required at this time, social media editor would be available to address any further concerns. DC Plan: Home Contact: brother Grant, Address: Confirmed on face sheet PCP: Dr Ephraim Lozoya
--- NOTE | 2024-08-29 22:13 | PD.RESDS ---
Planned Discharge Date 08/29/24 DS: Providers Provider Date of admission: 08/27/24 07:38 Primary care physician: Physician No Primary/Family Admitting Provider: Audie Govea MD Attending Provider on Admission: Cr Scruggs MD Consults: 08/27/24 05:24 Consult to General Surgery Stat Comment: Consulting Provider: Erasto Santo Attending Provider on DC: Cr Scruggs M.D. Discharging Provider: CLARISA Chacon DS: Diagnosis Problem List Completed Was Problem List Reviewed/Reconciled?: Yes Hospital Course Hospital Course Hospital course: Kira Varghese is a 44-year-old female with no significant past medical history who presented to the ED at the [facility] of 08/27/2024 c/o worsening, pressure-like epigastric pain since midnight. Treatment with 2mg morphine and IV fluids administered in the ED gave her full relief. Patient was able to pass flatus but had not had a bowel movement since the morning of the previous day. Denied chills, nausea, vomiting, or diarrhea. Patient was afebrile and labs negative for leukocytosis, LFT, lipase, and amylase all within normal limits. Initial CTAP demonstrated small bowel obstruction (SBO). Per surgical team recommendations, NG decompression and gastrograffin study were performed. Patient was placed on a diet of clear liquid. Bowel movements were stimulated with laxatives. Additional imaging during the course of subsequent days with small bowel series showed resolution of the SBO. AT the time of discharge, patient is medically stable and safe to return to the previous living conditions. Imaging: CTAP: Large retrocardiac gastric hernia. Fluid distended small bowel loops. Suspicious for early small bowel obstruction. No renal or ureteral calculi, no hydronephrosis. US of abdomen: Normal gallbladder. Normal CBD. Small Bowel Series: Negative for SBO. Immediate abdomen film obtained post administration 120 cc Gastrografin,contrast in the stomach and [id number] minute, 1 hour, and 3 hour films obtained showing contrast in distended small bowel loops, however most of the contrast is in the colon on the 3 hour film. Admission Diagnoses: #Small Bowel Obstruction, ruled out #Abdominal pain, improving #Hx of gastric sleeve Discharge Instructions: Follow-up with PCP within 1-2 weeks of discharge. Follow-up with GI within 1-2 weeks of discharge. Take MIRALAX (1-2 servings) daily as needed for constipation. Drink plenty of fluids. Continue taking medications as prescribed below. Return to Emergency Room if symptoms persist, worsen, or new symptoms develop Case was discussed with attending physician, Dr. Scruggs, and senior resident Dr Alexander. Karlo De Anda DO PGY I Time Spent with Patient Time attestation: Total time spent providing and/or coordinating discharge services: Time spent: Greater than 30 minutes Exam Vital Signs Temp Pulse Resp BP Pulse Ox O2 Del Method 97.6 F 58 L 17 132/88 H 99 Room Air 08/29/24 12:00 08/29/24 12:00 08/29/24 12:00 08/29/24 12:00 08/29/24 12:00 08/29/24 12:00 Narrative Exam GENERAL: NAD, AAOx3 HEENT: Moist mucosa. Eyes open, symmetrical, & clear CARDIO: Heart RRR, no obvious murmurs PULM: No noted coughing/dyspnea. CTA B/L, no R/W/R GI: Abdomen soft, non distended, and non tender to palpation. Appreciated bowel sounds. Percussion tympanic. SKIN/MSK/EXT: No wounds/rashes/edema/amputations, no pain on palpation. Pedal pulses present B/L NEURO: AAOx3, no focal neuro deficits, able to move all 4 extremiti Discharge Plan Plan Patient Disposition: HOME (Self Care) Patient condition on transfer: Stable Care Plan Goals: Follow-up with PCP within 1-2 weeks of discharge. Follow-up with GI within 1-2 weeks of discharge. Take MIRALAX (1-2 servings) daily as needed for constipation. Drink plenty of fluids. Continue taking medications as prescribed below. Return to Emergency Room if symptoms persist, worsen, or new symptoms develop. Prescriptions/Referrals Prescriptions/Med Rec: New polyethylene glycol 3350 [Miralax] 17 gram/dose powder 4 g PO QDAY Qty: 119 1RF Referrals: No Primary/Family,Physician [Primary Care Provider] - Patient/Caregiver Discharge Instructions Education Materials: Small Bowel Obstruction Print Language: Citizen Of [place] Stand Alone Forms: Shanell Award Info., Patient Portal Info Letter Discharge Order Discharge Orders: Discharge (Routine); Ordered 08/29/24 Ordered By: Karlo De Anda Quality Discharge Quality Measures VTE prophylaxis Attestestation MD Attestation I discussed with and supervised the resident physician who took care of this patient. I agree with the assessment and discharge plan as above. Patient to follow-up with PCP as scheduled. Return to the emergency room for recurrent symptoms.
== END 2024-08-29 12:50 | disposition home or self-care (01) | DRG 247 ==
LOC: SERX 05:47 → SERHOLD 12:12 → S3SX 08-29 08:54 → SERHOLD 08-29 18:48 → S3SX 08-29 18:48
PROVIDERS: Admitting Provider Student in an Organized Health Care Education/Training Program; Emergency Provider Student in an Organized Health Care Education/Training Program; Visit Provider Internal Medicine
DX: K56.609 Unspecified intestinal obstruction, unspecified as to partial versus complete obstruction (principal); Z98.84 Bariatric surgery status; K44.9 Diaphragmatic hernia without obstruction or gangrene; K45.8 Other specified abdominal hernia without obstruction or gangrene
CPT/HCPCS: 36415; 74018; 74176; 74250; 76705; 80053; 80061; 81001; 81025; 82150; 83605; 83690; 83735; 84100; 84703; 85025; 85610; 85730; 93225; 96372; 96375; 96376; 99285; J1644; J2270; J2405; J7030; J7120; Q9963; A9270